=== PATIENT | male | born 1980 | race Caucasian/White ===

== ENCOUNTER → 2016-06-13 | Outpatient (REF) | payer BC | LOC: M LAB REF 20:02 | PROVIDERS: ATTEND Physician Assistant | DX: R35.0 Frequency of micturition (principal) ==

== ENCOUNTER 2016-09-03 12:21 | Inpatient (IN) | payer BC ==
[~2016-09-03] VITALS: Ht 170.2 cm; Wt 134.1 kg
--- NOTE | 2016-09-03 13:24 | REP ---
Clinical: Shortness of breath . Comparison: 05/12/2011 . Technique: PA and lateral. Findings: The mediastinum and cardiac silhouette are normal. The lung garcia are clear and without acute consolidation, effusion, or pneumothorax. The skeletal structures are intact and normal. Impression: 1. No acute cardiopulmonary process. Signed by Israel Sandoval MD 09/03/2016 01:17 P
--- NOTE | 2016-09-03 13:26 | REP ---
Clinical: Altered mental status and headache. Comparison: None . Findings: The ventricles, sulci, and cisterns are normal in position and appearance. Encinas-white differentiation is maintained. No acute intracranial hemorrhage, mass/mass effect, pathology or trauma/injury. No evidence for acute infarction. No extra-axial fluid collection. Calvarium is intact. Paranasal sinuses and mastoid air cells are clear. Impression: Normal noncontrast head CT. No evidence for acute intracranial pathology or trauma/injury. Signed by Israel Sandoval MD 09/03/2016 01:18 P
[2016-09-03 14:13] LABS: BASO % 0.9 % (0.0-1.0); EOS # 0.3 K/mm3 (0.0-0.50); EOS % 7.2 % (0.0-3.0); LARGE UNSTAINED CELL # 0.1 K/mm3 (0.0-0.4); LARGE UNSTAINED CELL % 2.5 % (0.0-4.0); LYMPH % 43.1 % (24.0-44.0); MEAN CORPUSCULAR HEMOGLOBIN 30.5 pg (27.0-33.0); MEAN CORPUSCULAR HGB CONC 35.5 g/dl (32.0-36.5); MONO # 0.3 K/mm3 (0.0-0.8); MONO % 6.7 % (0.0-5.0); NEUTROPHILS # 1.8 K/mm3 (1.8-7.7); NEUTROPHILS % 39.5 % (36.0-66.0); PLATELET COUNT, AUTOMATED 206 k/mm3 (150-450); RED CELL DISTRIBUTION WIDTH 13.4 % (11.5-14.5); WHITE BLOOD COUNT 4.6 K/mm3 (4.0-10.0)
[2016-09-03 14:20] LABS: INR 0.96
[2016-09-03 14:41] LABS: ALKALINE PHOSPHATASE 73 U/L (45-117); ALT/SGPT 77 U/L (12-78); AST/SGOT 66 U/L (15-37); BILIRUBIN,DIRECT 0.1 MG/DL (0.0-0.2); BILIRUBIN,TOTAL 0.5 MG/DL (0.2-1.0); BLOOD UREA NITROGEN 14 MG/DL (7-18); CALCIUM LEVEL 8.5 MG/DL (8.5-10.1); CREATININE FOR GFR 0.97 MG/DL (0.70-1.30); GLUCOSE, FASTING 91 MG/DL (70-105); POTASSIUM SERUM 4.5 MEQ/L (3.5-5.1); SODIUM LEVEL 141 MEQ/L (136-145)
[2016-09-03 14:59] LABS: ALBUMIN 3.7 GM/DL (3.2-5.2); ALBUMIN/GLOBULIN RATIO 1.23 (1.00-1.93); ANION GAP 8 MEQ/L (8-16); CARBON DIOXIDE LEVEL 26 MEQ/L (21-32); CHLORIDE LEVEL 107 MEQ/L (98-107); TOTAL PROTEIN 6.7 GM/DL (6.4-8.2)
[2016-09-03] MEDS ORDERED: NS 1,000 ML IV ONE (15:15)
--- NOTE | 2016-09-03 15:25 | HPEPDOC ---
Medical History and Physical Date of Admission 09/03/16 History and Physical ATTENDING: Dr. Arizmendi PCP: none CC: AMS HPI: 35yoM with a past medical history significant for AMS. Pt states yesterday he felt angry and sad slightly confused, had episode of crying at dinner table but did not know why. states he seemed slightly "dazed" as though he was "looking through" her. This AM he felt "floaty", "dreamy" with slight Rt side head pain and slight blurred vision. No weakness, paresthesia, or SY otherwise. No diplopia, dizziness, vertigo, dysarthria, dysphagia. Denies any recent illness. States ate last night but not much to eat or drink today. Denies unresponsive episodes, episodes of staring, LOC, jerking, tongue biting, incontinence. Denies any fevers, chills, weakness, fatigue, CP, SOB, cough, palpitations, abdominal pain, N/V/D or changes in bowel or bladder habits. The pt states he still feels somewhat dazed but denies head pain or blurred vision currently. Upon presentation to the hospital the patient was found to have AMS, thus the hospitalist team was consulted. 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 ROS: As noted in HPI, otherwise 11pt ROS of systems reviewed and unremarkable. Pt states he is supposed to take ASA but usually takes as sporadically. PE: GEN: 35yoM, appears stated age. Well-nourished, well developed. No acute distress. Alert and oriented x 3. Pleasant, interactive. HEENT: Normocephalic, atraumatic. Pupils are equal, round, and reactive to light. Extraocular movements are intact. No nystagmus appreciated. Sclera are nonicteric. Conjunctiva without injection. Nose midline. Nasal turbinates without bogginess. EACs both patent BL. TMs both visualized and botello with good cone of light, no bulging or erythema. No facial asymmetry. Moist mucous membranes. Dentition fair. Pharynx pink and moist, no cobblestoning. Neck supple , trachea midline. No lymphadenopathy or thyromegaly appreciated. CHEST: Regular rate and rhythm, +S1, +S2 LUNGS: Clear to auscultation bilaterally. No wheezes, rales, or rhonchi. Breathing appears symmetric and easy. Patient is speaking in full sentences. No accessory muscle use. ABD: Round, soft, non-tender, non-distended. +Bowel sounds throughout. No rebound or guarding. No costovertebral angle tenderness. EXT: Pulses 2+ bilaterally dorsalis pedis and radial. No lower extremity edema appreciated. SKIN: [place], dry, warm. Capillary refill <2sec. No rashes. NEURO: Alert and oriented x 3. Cranial nerves III-XII are intact. No focal deficits appreciated. CXR: No acute cardiopulmonary process. CT: Head Normal noncontrast head CT. No evidence for acute intracranial pathology or trauma/injury EKG: SR 74bpm. UC pending UDS pending. A&P: 35yoM with a past medical history significant for AMS. Pt states yesterday he felt angry and sad slightly confused, had episode of crying at dinner table but did not know why. states he seemed slightly confused. This AM he felt "floaty", "dreamy" with slight Rt side head pain and blurred vision. No weakness , paresthesia, SY otherwise. The patient will be admitted to for at least [address] Arizmendi's service. AMS. Neurology consulted, Dr Haney aware and will see pt. MRI/MRA/MRV pending. UC pending, UDS pending. ASA 325mg daily, spoke with Dr Lizarraga. Rhabdomyolysis. Repeat labs in AM. IVF at 100cc/hr. S/P 1 liter bolus in ED. H/O factor V Leiden. ASA 325mg daily. Obesity. BMI 43.9. DVT prophylaxis. The patient is a Full code. Vital Signs Vital Signs Date Time Temp Pulse Resp B/P (MAP) Pulse Ox O2 Delivery O2 Flow Rate FiO2 09/03/16 15:15 131/76 (94) 09/03/16 14:36 72 16 95 09/03/16 12:23 98.1 Room Air Laboratory Data Labs 24H Laboratory Tests 2 09/03/16 14:04: White Blood Count 4.6, Red Blood Count 4.23L, Hemoglobin 12.9L, Hematocrit 36.4L , Mean Corpuscular Volume 86.0, Mean Corpuscular Hemoglobin 30.5, Mean Corpuscular Hemoglobin Concent 35.5, Red Cell Distribution Width 13.4, Platelet Count 206, Neutrophils (%) (Auto) 39.5, Lymphocytes (%) (Auto) 43.1, Monocytes ( %) (Auto) 6.7H, Eosinophils (%) (Auto) 7.2H, Basophils (%) (Auto) 0.9, Neutrophils # (Auto) 1.8, Lymphocytes # (Auto) 2.0, Monocytes # (Auto) 0.3, Eosinophils # (Auto) 0.3, Basophils # (Auto) 0.0, Large Unclassified Cells % 2.5 , Large Unclassified Cells # 0.1, Prothrombin Time 12.9, Prothromb Time International Ratio 0.96, Activated Partial Thromboplast Time 29.5, Anion Gap 8 , Calcium Level 8.5, Aspartate Amino Transf (AST/SGOT) 66H, Alanine Aminotransferase (ALT/SGPT) 77, Alkaline Phosphatase 73, Total Bilirubin 0.5, Direct Bilirubin 0.1, Total Creatine Kinase 1453H, Creatine Kinase MB 6.3H, Creatine Kinase MB Relative Index 0.43, Troponin I < 0.02, Total Protein 6.7, Albumin 3.7, Albumin/Globulin Ratio 1.23, Thyroid Stimulating Hormone (TSH) 2.850 CBC/BMP Laboratory Tests 09/03/16 14:04 Red Blood Count 4.23 L, Mean Corpuscular Volume 86.0, Mean Corpuscular Hemoglobin 30.5, Mean Corpuscular Hemoglobin Concent 35.5, Red Cell Distribution Width 13.4, Neutrophils (%) (Auto) 39.5, Lymphocytes (%) (Auto) 43.1, Monocytes (%) (Auto) 6.7 H, Eosinophils (%) (Auto) 7.2 H, Basophils (%) ( Auto) 0.9, Neutrophils # (Auto) 1.8, Lymphocytes # (Auto) 2.0, Monocytes # (Auto ) 0.3, Eosinophils # (Auto) 0.3, Basophils # (Auto) 0.0 Home Medications No Active Prescriptions or Reported Meds Allergies Coded Allergies: No Known Allergies (Unverified , 09/03/16) GME ATTESTATION My preceptor for this patient encounter was physically present in the building during the encounter and was fully available. As needed, all aspects of the patient interview, examination, medical decision making process, and medical care plan development were reviewed and approved by the preceptor. Preceptor is aware and concurs with the plan as stated in the body of this note and will attest to such by his/her cosignature. ATTENDING NOTE I have both independently examined this patient as well as reviewed the H&P. I have discussed in detail with Huma the findings and plan of treatment as documented in Chantal note. I will continue to follow the patient and offer further guidance to the patients care as necessary during this hospital stay. Huma Ghotra MD September 03, 2016 15:25 BLAKE WALLACE MD September 04, 2016 11:34
[2016-09-03 15:53] LABS: METHADONE URINE NEGATIVE (NEGATIVE)
[2016-09-03] MEDS ORDERED: ACETAMINOPHEN TAB 650MG DOSE (2X325MG) PO PRN (16:00)
--- NOTE | 2016-09-03 17:08 | REP ---
MRA BRAIN WITHOUT CONTRAST: HISTORY: Aneurysm. 3D [id number] MR angiography was performed at the level of the [place] of [place]. The examination is limited secondary to motion. There is no definite aneurysm or arteriovenous malformation. There are no atherosclerotic lesions. Major intracranial vessels are patent. The left vertebral artery is dominant. IMPRESSION:Limited examination demonstrating no definite aneurysm or arteriovenous malformation. Signed by Van Grossman MD 09/04/2016 08:54 A
--- NOTE | 2016-09-03 17:10 | REP ---
MR BRAIN WITHOUT CONTRAST: HISTORY: Headache. COMPARISON: CT 09/03/2016. There are no areas of abnormal signal intensity in the brain. There is no intraparenchymal hemorrhage, infarct, mass or midline shift. The sella turcica is partially empty. The ventricular system is normal in appearance. A ken cisterna magna is present. There is no extracerebral collection. Mucosal thickening is present in the right frontal sinus. IMPRESSION: There is no intracranial lesion. Signed by Van Grossman MD 09/04/2016 08:54 A
--- NOTE | 2016-09-03 18:10 | REPUSA ---
MR Venogram of the brain Clinical history: Cavernous venous thrombosis. Technique: [id number] MRA images of the brain were obtained before and after administration of in travenous gadolinium contrast. 3-D MIP images were also obtained. Findings: The venous structures extending including the sagittal and transverse sinuses, to the level of the jugular veins, demonstrate normal caliber and contour. There is no evidence of stenosis or t hrombosis. Impression: Unremarkable MRV examination of the brain.
[2016-09-03 18:15] VITALS: BP 133/82
[2016-09-03] MEDS: ASPIRIN 325 MG TAB PO SCH (18:41)
[2016-09-03] MEDS: NS 1,000 ML IV SCH (18:41)
[2016-09-03 20:03] VITALS: BP 127/86
[2016-09-03] MEDS: HEPARIN SOD (PORCINE) 5000 UNITS/ML VIAL SC SCH (20:03)
[2016-09-04] VITALS (7 sets, daily range): BP systolic 125–144; BP diastolic 80–107
[2016-09-04] MEDS: NS 1,000 ML IV SCH ×3 (04:28→21:46)
[2016-09-04 05:29] LABS: MEAN CORPUSCULAR HEMOGLOBIN 30.3 pg (27.0-33.0); MEAN CORPUSCULAR HGB CONC 35.1 g/dl (32.0-36.5); MEAN CORPUSCULAR VOLUME 86.5 fl (80.0-96.0); RED CELL DISTRIBUTION WIDTH 13.4 % (11.5-14.5); WHITE BLOOD COUNT 4.5 K/mm3 (4.0-10.0)
[2016-09-04 05:46] LABS: ALBUMIN 3.4 GM/DL (3.2-5.2); ALKALINE PHOSPHATASE 68 U/L (45-117); ALT/SGPT 70 U/L (12-78); ANION GAP 6 MEQ/L (8-16); AST/SGOT 53 U/L (15-37); BILIRUBIN,TOTAL 0.5 MG/DL (0.2-1.0); BLOOD UREA NITROGEN 13 MG/DL (7-18); CALCIUM LEVEL 8.2 MG/DL (8.5-10.1); CARBON DIOXIDE LEVEL 27 MEQ/L (21-32); CHLORIDE LEVEL 108 MEQ/L (98-107); CREATININE FOR GFR 1.01 MG/DL (0.70-1.30); GLOMERULAR FILTRATION RATE > 60.0 (>60); GLUCOSE, FASTING 101 MG/DL (70-105); POTASSIUM SERUM 4.4 MEQ/L (3.5-5.1); SODIUM LEVEL 141 MEQ/L (136-145); TOTAL PROTEIN 6.5 GM/DL (6.4-8.2)
[2016-09-04] MEDS: HEPARIN SOD (PORCINE) 5000 UNITS/ML VIAL SC SCH ×2 (08:01→21:46)
[2016-09-04] MEDS: ASPIRIN 325 MG TAB PO SCH (08:01)
--- NOTE | 2016-09-04 13:07 | IPNPDOC ---
Text Note Date of Service The patient was seen on 09/04/16. NOTE Subjective: Patient is a 35 year old male with a PMHx of Factor V Leiden mutation who presented to the ER with AMS. He noted that he felt "foggy." Patient was admitted to telemetry for possible TIA. Patient was seen and examined at the bedside. Currently he is feeling better, but still notes that he has some "fogginess" that has not completely resolved. Objective: Vitals (See below) General: Lying in bed, no acute distress, comfortable, AAOx3 HEENT: NC, AT CVS: RRR, +S1S2 Lungs: Fair air entry b/l, -w/r/r Abdomen: Soft, ND, NT, +BSx4 Extremities: +PPx4, - Edema, - Calf tenderness Assessment and plan: 1. AMS / "Fogginess" - possibly 2/2 substance abuse 2/2 marijuana, less likely 2 /2 TIA - Presented with difficulty with thoughts and light headedness - No focal deficits were noted on physical exam - UDS positive for marijuana - CT Head / MRV / MRI / MRA head - all have been negative for any acute pathology - c/w neurological checks - Neurology has been consulted - appreciate their input - c/w ASA 325 2. Rhabdomyolysis - elevated CKMB, trending down - c/w IV fluid hydration with NS 3. Factor V Leiden mutation - c/w ASA 325 4. Obesity 5. DVT prophylaxis - c/w Heparin SQ VS,Fishbone, I+O VS, Fishbone, I+O Laboratory Tests 09/03/16 14:04 Red Blood Count 4.23 L, Mean Corpuscular Volume 86.0, Mean Corpuscular Hemoglobin 30.5, Mean Corpuscular Hemoglobin Concent 35.5, Red Cell Distribution Width 13.4, Neutrophils (%) (Auto) 39.5, Lymphocytes (%) (Auto) 43.1, Monocytes (%) (Auto) 6.7 H, Eosinophils (%) (Auto) 7.2 H, Basophils (%) ( Auto) 0.9, Neutrophils # (Auto) 1.8, Lymphocytes # (Auto) 2.0, Monocytes # (Auto ) 0.3, Eosinophils # (Auto) 0.3, Basophils # (Auto) 0.0 09/04/16 05:01 Red Blood Count 3.94 L, Mean Corpuscular Volume 86.5, Mean Corpuscular Hemoglobin 30.3, Mean Corpuscular Hemoglobin Concent 35.1, Red Cell Distribution Width 13.4, Calcium Level 8.2 L, Aspartate Amino Transf (AST/SGOT) 53 H, Alanine Aminotransferase (ALT/SGPT) 70, Total Creatine Kinase 1000 H, Alkaline Phosphatase 68, Total Bilirubin 0.5, Total Protein 6.5, Albumin 3.4 Vital Signs Date Time Temp Pulse Resp B/P (MAP) Pulse Ox O2 Delivery O2 Flow Rate FiO2 09/04/16 07:30 97.7 84 22 144/96 (112) 97 Room Air I&O- Last 24 Hours up to 6 AM 09/04/16 06:00 Intake Total 2385 ml Output Total 1275 ml Balance 1110 ml FRANKO SARABIA MD September 04, 2016 13:07
--- NOTE | 2016-09-04 14:21 | ECGEPIP ---
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
[2016-09-05] VITALS: BP 141/90
[2016-09-05 04:00] VITALS: BP 148/71
[2016-09-05 06:12] LABS: MEAN CORPUSCULAR HEMOGLOBIN 30.7 pg (27.0-33.0); MEAN CORPUSCULAR HGB CONC 35.9 g/dl (32.0-36.5); MEAN CORPUSCULAR VOLUME 85.5 fl (80.0-96.0); RED CELL DISTRIBUTION WIDTH 13.6 % (11.5-14.5); WHITE BLOOD COUNT 4.3 K/mm3 (4.0-10.0)
[2016-09-05 06:33] LABS: ALBUMIN 3.3 GM/DL (3.2-5.2); ALBUMIN/GLOBULIN RATIO 1.06 (1.00-1.93); ALKALINE PHOSPHATASE 69 U/L (45-117); ALT/SGPT 73 U/L (12-78); ANION GAP 6 MEQ/L (8-16); AST/SGOT 44 U/L (15-37); BILIRUBIN,TOTAL 0.4 MG/DL (0.2-1.0); BLOOD UREA NITROGEN 14 MG/DL (7-18); CALCIUM LEVEL 8.2 MG/DL (8.5-10.1); CARBON DIOXIDE LEVEL 26 MEQ/L (21-32); CHLORIDE LEVEL 111 MEQ/L (98-107); CREATININE FOR GFR 0.94 MG/DL (0.70-1.30); GLOMERULAR FILTRATION RATE > 60.0 (>60); GLUCOSE, FASTING 97 MG/DL (70-105); POTASSIUM SERUM 4.4 MEQ/L (3.5-5.1); SODIUM LEVEL 143 MEQ/L (136-145); TOTAL PROTEIN 6.4 GM/DL (6.4-8.2)
[2016-09-05] MEDS ORDERED: ASPI325T PO (07:25)
[2016-09-05 08:06] VITALS: BP 139/93
[2016-09-05] MEDS: ASPIRIN 325 MG TAB PO SCH (09:45)
--- NOTE | 2016-09-05 11:54 | CR ---
DATE OF CONSULTATION: 09/05/2016 REASON FOR CONSULTATION: Altered mental status. HISTORY OF PRESENT ILLNESS: Los Carrera is a 35-year-old male with past medical history significant for factor V Leiden mutation, presenting with a sense of having altered mental status with feeling angry, sad, and confused, episodes of crying at the dinner table and not knowing why. The patient also had a feeling that he was floating and dreaming. The patient has been smoking marijuana every single evening recently to help him sleep. The patient does not take aspirin regularly and states he was last evaluated by a poll watcher at the age of 15. He recounts that the poll watcher told him to take the aspirin only whenever he feels like taking it, which is unlikely. I have requested the patient continue with aspirin 81 mg every single day until he is evaluated by poll watcher, which our hospital will be able to refer him to upon discharge. The patient states that at the present time his altered mental status feelings have completely resolved. He was incidentally documented to have rhabdomyolysis with a creatine phosphokinase (CPK) level in the low thousands. He was maintained on aspirin 325 mg during the hospitalization. MRI/MRA angiogram of the head and neck did not reveal any significant stenosis or stroke or aneurysm. The patient denies history of tobacco use. He does use alcohol a few days a week. He denies any weakness of the arms or legs or change in vision, speech, or swallowing. PAST MEDICAL HISTORY: Factor V Leiden mutation. PAST SURGICAL HISTORY: None. SOCIAL HISTORY: The patient lives with his and one child. He denies use of any tobacco and uses marijuana every single night. He consumes one to two alcoholic beverages per week. FAMILY HISTORY: Mother with factor V Leiden mutation. REVIEW OF SYSTEMS: A 14-point review of systems obtained and is negative except as per history of present illness (HPI). PHYSICAL EXAMINATION: Blood pressure is 144/96, pulse rate 84, respiratory rate is 22, temperature is 97.7 degrees Fahrenheit, oxygenation 97% on room air. The patient is awake, alert, oriented to person, place, and time. Speech, language, comprehension, repetition are intact. Pupils are 3 mm, round, reactive to light. Extraocular movements are intact in all directions. Sensation in V1, V2, V3 is intact to light touch. No facial asymmetry on activation. Palate elevates symmetrically. Tongue is midline. No weakness of sternocleidomastoids bilaterally. Motor examination: No pronator drift. Strength is 5/5, including bilateral deltoids, biceps, triceps, iliopsoas, quadriceps, anterior tibialis. Deep tendon reflexes are 2's throughout. Romberg testing is negative. Sensory is intact to light touch in all four extremities. Coordination: Normal evvbao-gb-[id number] without any signs of ataxia or dysmetria. ASSESSMENT: 1. Episode of altered mental status in the setting of rhabdomyolysis and marijuana use. 2. Factor V Leiden mutation PLAN: 1. Recommend the patient be discharged on 81 mg aspirin every single day. 2. Recommend the patient be referred to a poll watcher for further evaluation and management of his factor IV Leiden mutation. 3. The patient advised to stop using marijuana and to re-establish care with a primary care provider to manage his insomnia. 4. Continue management of rhabdomyolysis as per primary team.
--- NOTE | 2016-09-05 18:50 | DSES ---
DATE OF ADMISSION: 09/03/2016 DATE OF DISCHARGE: 09/05/2016 ATTENDING PHYSICIAN: Dr. Renetta Arizmendi PRIMARY CARE PHYSICIAN: Will be established with family medicine. REFERRING PHYSICIAN: None. CONSULTATIONS: None. CONSULTING PHYSICIAN: None. CONDITION ON DISCHARGE: Stable. FINAL DIAGNOSES: 1. Rhabdomyolysis. 2. Altered mental status possible secondary to substance abuse. PROCEDURES: None. HISTORY OF PRESENT ILLNESS: Patient is a 35-year-old male with a past medical history of Factor V Leiden mutation who presented to the emergency room with altered mental status. He noted that he felt foggy. Patient was admitted for telemetry for possible transient ischemic attack (TIA). HOSPITAL COURSE: 1. Altered mental status/fogginess possibly secondary to substance abuse/secondary to marijuana. Less likely secondary to TIA. Presented with difficulty with thoughts and lightheadedness. No focal deficits were noted on physical exam. Urine toxicology screen was positive for marijuana. CT head MRV/MRI/MRA head all have been negative for any acute pathology. Continue with neurological checks. Neurology has been consulted. We appreciate their input. Continue with aspirin 325. 2. Rhabdomyolysis. Elevated CK-MB has been trending down. He has been put on intravenous (IV) fluid hydration. 3. Factor V Leiden mutation. Continue with aspirin 325. 4. Obesity. 5. Deep venous prophylaxis. (DVT) prophylaxis. Continue with heparin. DISCHARGE MEDICATIONS: The patient was discharged home with the following medication list: - aspirin 325 mg DISCHARGE INSTRUCTIONS: Patient is advised to followup with his primary care provider who we will help establish. He has been given a referral to hematology/oncology. Patient was advised to confirm the schedule appointment. He has been advised to remain compliant with treatment plan, medications and return to the emergency room if he experience any problems. TIME SPENT ON DISCHARGE: 35 minutes.
== END 2016-09-05 09:58 | disposition home or self-care (01) | DRG 812 ==
LOC: M ED 13:29 → M ED INP 15:48 → M PCU 18:00
PROVIDERS: ADMIT Hospitalist; ATTEND Internal Medicine
DX: T40.7X1A Poisoning by cannabis (derivatives), accidental (unintentional), initial encounter (principal); D68.51 Activated protein C resistance; M62.82 Rhabdomyolysis; Z68.41 Body mass index [BMI] 40.0-44.9, adult; R41.82 Altered mental status, unspecified; F12.10 Cannabis abuse, uncomplicated; E66.9 Obesity, unspecified; Z82.49 Family history of ischemic heart disease and other diseases of the circulatory system; Z83.2 Family history of diseases of the blood and blood-forming organs and certain disorders involving the immune mechanism; Z79.82 Long term (current) use of aspirin

== ENCOUNTER → 2016-09-19 | Outpatient (REF) | payer BC ==
[~2016-09-19] MED LIST: ASPI325T PO
[2016-09-21 00:06] LABS: Lyme Disease IgG/IgM Antibodie <0.91 ISR (0.00-0.90); Lyme Disease IgM Ab Quantitati <0.80 index (0.00-0.79)
== END ==
LOC: M SFHCADAM 10:42
PROVIDERS: ATTEND Family Medicine
DX: R40.4 Transient alteration of awareness (principal)

== ENCOUNTER → 2016-09-27 | Outpatient (REF) | payer BC | LOC: M LAB REF 12:46 | PROVIDERS: ATTEND Internal Medicine Medical Oncology | DX: D68.51 Activated protein C resistance (principal) ==

== ENCOUNTER → 2016-09-27 | Outpatient (REF) | payer BC | LOC: M SFHCADAM 12:59 | PROVIDERS: ATTEND Family Medicine | DX: G93.40 Encephalopathy, unspecified (principal); E72.20 Disorder of urea cycle metabolism, unspecified ==

== ENCOUNTER → 2016-09-27 | Outpatient (CLI) | payer BC ==
[2016-09-27 15:55] LABS: INR 0.89
[2016-09-27 16:07] LABS: ALKALINE PHOSPHATASE 77 U/L (45-117); AST/SGOT 47 U/L (15-37); BILIRUBIN,TOTAL 0.5 MG/DL (0.2-1.0); BLOOD UREA NITROGEN 17 MG/DL (7-18); CALCIUM LEVEL 8.6 MG/DL (8.5-10.1); CHLORIDE LEVEL 104 MEQ/L (98-107); CREATININE FOR GFR 1.04 MG/DL (0.70-1.30); GLUCOSE, FASTING 127 MG/DL (70-105); SODIUM LEVEL 137 MEQ/L (136-145); TOTAL PROTEIN 6.9 GM/DL (6.4-8.2)
[2016-09-27 16:25] LABS: ALT/SGPT 63 U/L (12-78)
[2016-09-27 20:31] LABS: ANION GAP 7 MEQ/L (8-16); CARBON DIOXIDE LEVEL 26 MEQ/L (21-32)
[2016-09-27 20:32] LABS: ALBUMIN 4.2 GM/DL (3.2-5.2); ALBUMIN/GLOBULIN RATIO 1.56 (1.00-1.93)
== END ==
LOC: M LAB 14:55
PROVIDERS: ATTEND Family Medicine
DX: E72.20 Disorder of urea cycle metabolism, unspecified (principal); G93.40 Encephalopathy, unspecified

== ENCOUNTER → 2016-09-29 | Outpatient (REF) | payer BC | LOC: M SFHCADAM 09:06 | PROVIDERS: ATTEND Family Medicine | DX: E72.20 Disorder of urea cycle metabolism, unspecified (principal); G93.40 Encephalopathy, unspecified ==

== ENCOUNTER → 2016-10-01 | Outpatient (CLI) | payer BC ==
--- NOTE | 2016-10-02 03:48 | REP ---
Clinical: Elevated ammonia levels. Technique: Real time botello scale ultrasound examination using curved array transducer. Findings: The liver is increased in echogenicity with poor through transmission suggesting fatty infiltration without focal hepatic lesion identified. The pancreas is incompletely evaluated due to interposed bowel gas. The gallbladder demonstrates a gallstone without wall thickening, pericholecystic fluid, or biliary ductal dilatation. No sonographic Lepe's sign was elicited. Common bile duct measures 4.3 mm diameter. Right kidney appears malrotated, but without hydronephrosis and measures 10.1 x 4.7 x 5.2 cm. No ascites in the visualized right upper quadrant. Impression: 1. Fatty infiltration to the liver without focal hepatic lesion identified. 2. Cholelithiasis. Signed by Israel Sandoval MD 10/02/2016 03:41 A
== END ==
LOC: M RAD 08:13
PROVIDERS: ATTEND Family Medicine
DX: E72.20 Disorder of urea cycle metabolism, unspecified (principal); K76.0 Fatty (change of) liver, not elsewhere classified; K80.20 Calculus of gallbladder without cholecystitis without obstruction

== ENCOUNTER → 2016-10-04 | Outpatient (REF) | payer BC | LOC: M SFHCADAM 15:39 | PROVIDERS: ATTEND Family Medicine | DX: E72.20 Disorder of urea cycle metabolism, unspecified (principal) ==

== ENCOUNTER → 2016-10-08 | Outpatient (REF) | payer BC | LOC: M SFHCADAM 09:27 | PROVIDERS: ATTEND Family Medicine | DX: E72.20 Disorder of urea cycle metabolism, unspecified (principal); G93.40 Encephalopathy, unspecified ==

== ENCOUNTER → 2016-10-09 | Outpatient (REF) | payer BC | LOC: M SFHCADAM 18:55 | PROVIDERS: ATTEND Family Medicine | DX: Z87.39 Personal history of other diseases of the musculoskeletal system and connective tissue (principal) ==

== ENCOUNTER → 2016-10-15 | Outpatient (REF) | payer BC | LOC: M SFHCADAM 10:28 | PROVIDERS: ATTEND Family Medicine | DX: E72.20 Disorder of urea cycle metabolism, unspecified (principal); Z87.39 Personal history of other diseases of the musculoskeletal system and connective tissue ==

== ENCOUNTER → 2016-10-17 | Outpatient (REF) | payer BC | LOC: M SFHCADAM 13:54 | PROVIDERS: ATTEND Family Medicine | DX: E72.20 Disorder of urea cycle metabolism, unspecified (principal); Z87.39 Personal history of other diseases of the musculoskeletal system and connective tissue ==

== ENCOUNTER → 2016-10-18 | Outpatient (REF) | payer BC ==
[2016-10-20 00:15] LABS: SJOGREN'S ANTI SS-A <0.2 AI (0.0-0.9); SJOGREN'S ANTI SS-B <0.2 AI (0.0-0.9)
[2016-10-24 08:07] LABS: ANTI SCLERODERMA ANTIBODIES <0.2 AI (0.0-0.9); Mi-2 ANTIBODIES Negative (.); POLYMYOSITIS AB 9.2 EU/mL (.)
== END ==
LOC: M SFHCADAM 11:45
PROVIDERS: ATTEND Family Medicine
DX: R74.8 Abnormal levels of other serum enzymes (principal)

== ENCOUNTER → 2016-11-01 | Outpatient (CLI) | payer BC ==
[2016-11-01 18:27] LABS: FERRITIN 223 NG/ML (26-388); PERCENT SATURATION 24.2 % (19.7-37.4); TOTAL IRON BINDING CAPACITY 289 UG/DL (250-450)
[2016-11-04 10:45] LABS: HEPATITIS B SURFACE ANTIBODY NEGATIVE (POSITIVE)
== END ==
LOC: M LAB 15:09
PROVIDERS: ATTEND Internal Medicine Gastroenterology
DX: E72.20 Disorder of urea cycle metabolism, unspecified (principal); R94.5 Abnormal results of liver function studies
CPT/HCPCS: 36415; 82728; 83550; 86038; 86255; 86256; 86376; 86706; 86708; 87340; G0472

== ENCOUNTER → 2016-11-01 | Outpatient (CLI) | payer BC ==
[2016-11-01 18:33] LABS: ALBUMIN 3.9 GM/DL (3.2-5.2); ALBUMIN/GLOBULIN RATIO 1.34 (1.00-1.93); ALKALINE PHOSPHATASE 76 U/L (45-117); ANION GAP 6 MEQ/L (8-16); AST/SGOT 48 U/L (15-37); BILIRUBIN,TOTAL 0.5 MG/DL (0.2-1.0); BLOOD UREA NITROGEN 13 MG/DL (7-18); CALCIUM LEVEL 8.2 MG/DL (8.5-10.1); CARBON DIOXIDE LEVEL 25 MEQ/L (21-32); CHLORIDE LEVEL 105 MEQ/L (98-107); CREATININE FOR GFR 1.07 MG/DL (0.70-1.30); FREE T4 0.38 NG/DL (0.76-1.46); GLOMERULAR FILTRATION RATE > 60.0 (>60); PERCENT SATURATION 24.5 % (19.7-37.4); POTASSIUM SERUM 4.4 MEQ/L (3.5-5.1); SODIUM LEVEL 136 MEQ/L (136-145); TOTAL IRON BINDING CAPACITY 286 UG/DL (250-450); TOTAL PROTEIN 6.8 GM/DL (6.4-8.2)
[2016-11-01 19:32] LABS: ALT/SGPT 70 U/L (12-78); GLUCOSE, FASTING 106 MG/DL (70-105)
== END ==
LOC: M LAB 15:16
PROVIDERS: ATTEND Family Medicine
DX: E72.20 Disorder of urea cycle metabolism, unspecified (principal); R41.0 Disorientation, unspecified; N53.8 Other male sexual dysfunction

== ENCOUNTER → 2016-11-20 | Outpatient (REF) | payer BC ==
[2016-11-20 16:42] LABS: ALBUMIN 3.6 GM/DL (3.2-5.2); ALBUMIN/GLOBULIN RATIO 1.09 (1.00-1.93); ALKALINE PHOSPHATASE 75 U/L (45-117); ALT/SGPT 60 U/L (12-78); ANION GAP 7 MEQ/L (8-16); AST/SGOT 29 U/L (15-37); BILIRUBIN,TOTAL 0.3 MG/DL (0.2-1.0); BLOOD UREA NITROGEN 22 MG/DL (7-18); CALCIUM LEVEL 8.6 MG/DL (8.5-10.1); CARBON DIOXIDE LEVEL 25 MEQ/L (21-32); CHLORIDE LEVEL 109 MEQ/L (98-107); CREATININE FOR GFR 1.22 MG/DL (0.70-1.30); GLOMERULAR FILTRATION RATE > 60.0 (>60); GLUCOSE, FASTING 83 MG/DL (70-105); POTASSIUM SERUM 4.4 MEQ/L (3.5-5.1); SODIUM LEVEL 141 MEQ/L (136-145); TOTAL PROTEIN 6.9 GM/DL (6.4-8.2)
== END ==
LOC: M SFHCPLAZ 11:37
PROVIDERS: ATTEND Nurse Practitioner Family
DX: G93.40 Encephalopathy, unspecified (principal)

== ENCOUNTER → 2016-11-26 | Outpatient (CLI) | payer BC | LOC: M LAB 16:53 | PROVIDERS: ATTEND Family Medicine | DX: E72.20 Disorder of urea cycle metabolism, unspecified (principal) ==

== ENCOUNTER → 2016-12-05 | Outpatient (CLI) | payer BC | LOC: M LAB 16:51 | PROVIDERS: ATTEND Family Medicine | DX: E72.20 Disorder of urea cycle metabolism, unspecified (principal) ==

== ENCOUNTER → 2016-12-12 | Outpatient (REF) | payer BC | LOC: M SFHCADAM 08:20 | PROVIDERS: ATTEND Family Medicine | DX: Z53.8 Procedure and treatment not carried out for other reasons (principal) ==

== ENCOUNTER → 2016-12-22 | Outpatient (CLI) | payer BC ==
[2016-12-23 09:53] LABS: CORTISOL AM 1.6 UG/DL (4.3-22.4)
[2016-12-23 10:18] LABS: FOLLICLE STIMULATING HORMONE 0.5 mIU/mL (1.4-18.1); LUTEINIZING HORMONE 0.3 mIU/mL (1.5-9.3)
== END ==
LOC: M LAB 08:59
PROVIDERS: ATTEND Family Medicine
DX: E23.6 Other disorders of pituitary gland (principal)

== ENCOUNTER → 2016-12-23 | Outpatient (REF) | payer BC ==
[2016-12-23 20:07] LABS: CORTISOL AM 0.9 UG/DL (4.3-22.4); LUTEINIZING HORMONE 0.4 mIU/mL (1.5-9.3)
[2016-12-23 20:08] LABS: FOLLICLE STIMULATING HORMONE 1.5 mIU/mL (1.4-18.1)
[2016-12-27 00:06] LABS: ALPHA-AMINOADIPATE 42.5 umol/g Cr (0.0-146.7); ALPHA-AMINOBUTYRATE 9.8 umol/g Cr (0.0-34.6); BETA-AMINOISOBUTYRATE 24.6 umol/g Cr (0.0-807.9); Creatinine(Crt),U 1.33 g/L (.); GAMMA-AMINOBUTYRATE 0.7 umol/g Cr (0.0-13.1); Orotic/Crt Ratio 0.25 mmol/mol (0.11-1.07)
[2016-12-28 00:07] LABS: ALPHA-AMINOADIPATE 2.3 umol/L (0.0-2.2); BETA-AMINOISOBUTYRATE 1.3 umol/L (0.3-4.3); GAMMA-AMINOBUTYRATE <0.4 umol/L (0.0-0.3)
== END ==
LOC: M SFHCADAM 18:54
PROVIDERS: ATTEND Family Medicine
DX: E23.6 Other disorders of pituitary gland (principal); E72.20 Disorder of urea cycle metabolism, unspecified

== ENCOUNTER → 2017-01-04 | Outpatient (REF) | payer BC | LOC: M SFHCADAM 08:26 | PROVIDERS: ATTEND Family Medicine | DX: E23.0 Hypopituitarism (principal) ==

== ENCOUNTER → 2017-01-28 | Outpatient (CLI) | payer BC ==
[~2017-01-28] MED LIST changes: +PROHANCE 279.3MG/ML 15ML VIAL (A9576) As Ordered ONE
[2017-01-28 18:49] LABS: ALBUMIN 3.6 GM/DL (3.2-5.2); ALKALINE PHOSPHATASE 65 U/L (45-117); ALT/SGPT 74 U/L (12-78); ANION GAP 9 MEQ/L (8-16); AST/SGOT 41 U/L (15-37); BILIRUBIN,TOTAL 0.4 MG/DL (0.2-1.0); BLOOD UREA NITROGEN 10 MG/DL (7-18); CALCIUM LEVEL 8.4 MG/DL (8.5-10.1); CARBON DIOXIDE LEVEL 25 MEQ/L (21-32); CHLORIDE LEVEL 107 MEQ/L (98-107); CREATININE FOR GFR 0.92 MG/DL (0.70-1.30); FREE T4 0.61 NG/DL (0.76-1.46); GLOMERULAR FILTRATION RATE > 60.0 (>60); GLUCOSE, FASTING 125 MG/DL (70-105); POTASSIUM SERUM 4.3 MEQ/L (3.5-5.1); SODIUM LEVEL 141 MEQ/L (136-145); TOTAL PROTEIN 6.6 GM/DL (6.4-8.2)
--- NOTE | 2017-01-29 08:32 | REP ---
MRI BRAIN WITHOUT AND WITH CONTRAST: HISTORY: Hypopituitarism. CONTRAST: ProHance 13 mL. COMPARISON: 09/03/2016. There are no areas of abnormal signal intensity in the brain. There is no intraparenchymal hemorrhage, infarct, mass or midline shift. There is no abnormal enhancement. The ventricular system is normal in appearance. There is no extracerebral collection. A ken cisterna magna is present. The sella turcica is partially empty. The pituitary gland is small in size measuring 3.8 mm in height. There is homogeneous enhancement with contrast. The infundibulum is midline. The cavernous sinuses, optic chiasm and hypothalamus are normal in appearance. The sinuses are clear. IMPRESSION: There is no intracranial lesion. Signed by Van Grossman MD 01/29/2017 08:42 A
== END ==
LOC: M LAB 15:49
PROVIDERS: ATTEND Family Medicine
DX: E23.0 Hypopituitarism (principal); M79.1 Myalgia
CPT/HCPCS: 36415; 70553; 80053; 82550; 84439; 84443; A9576

== ENCOUNTER → 2017-05-09 | Outpatient (REF) | payer BC ==
[2017-05-09 13:39] LABS: BASO % 0.5 % (0.0-1.0); EOS # 0.3 10^3/uL (0.0-0.50); EOS % 4.8 % (0.0-3.0); HEMATOCRIT 40.4 % (42.0-52.0); HEMOGLOBIN 13.8 g/dl (14.0-18.0); IMMATURE GRANULOCYTE % 0.4 % (0-0); LYMPH # 2.7 10^3/uL (1.5-4.5); LYMPH % 48.2 % (24.0-44.0); MEAN CORPUSCULAR HEMOGLOBIN 28.4 pg (27.0-33.0); MEAN CORPUSCULAR HGB CONC 34.2 g/dl (32.0-36.5); MEAN CORPUSCULAR VOLUME 83.1 fl (80.0-96.0); MONO # 0.4 10^3/uL (0.0-0.8); MONO % 6.8 % (0.0-5.0); NEUTROPHILS # 2.2 10^3/uL (1.8-7.7); NEUTROPHILS % 39.3 % (36.0-66.0); PLATELET COUNT, AUTOMATED 227 10^3/uL (150-450); RED BLOOD COUNT 4.86 10^6/uL (4.30-6.10); RED CELL DISTRIBUTION WIDTH 12.8 % (11.5-14.5); WHITE BLOOD COUNT 5.6 10^3/uL (4.0-10.0)
[2017-05-09 13:42] LABS: APPEARANCE, URINE CLEAR (CLEAR); BACTERIA, URINE AUTO NEGATIVE (NEGATIVE); BILIRUBIN, URINE AUTO NEGATIVE (NEGATIVE); BLOOD, URINE BLOOD 1+ (NEGATIVE); COLOR, URINE YELLOW (YELLOW); GLUCOSE, URINE (UA) AUTO NEGATIVE (NEGATIVE); KETONE, URINE AUTO NEGATIVE (NEGATIVE); LEUKOCYTE ESTERASE, URINE AUTO NEGATIVE (NEGATIVE); MUCUS, URINE SMALL (NEGATIVE); NITRITE, URINE AUTO NEGATIVE (NEGATIVE); PROTEIN, URINE AUTO 1+ mg/dL (NEGATIVE); RBC, URINE AUTO 0 /HPF (0-3); SPECIFIC GRAVITY URINE AUTO 1.021 (1.002-1.035); SQUAMOUS EPITHELIAL CELL UR AU 0 /HPF (0-6); UROBILINOGEN, URINE AUTO 0.2 mg/dL (0.0-2.0); WBC, URINE AUTO 0 /HPF (0-3)
[2017-05-09 13:56] LABS: ALBUMIN/GLOBULIN RATIO 1.29 (1.00-1.93); ALKALINE PHOSPHATASE 78 U/L (45-117); ALT/SGPT 48 U/L (12-78); ANION GAP 7 MEQ/L (8-16); AST/SGOT 25 U/L (7-37); BILIRUBIN,TOTAL 0.5 MG/DL (0.2-1.0); BLOOD UREA NITROGEN 14 MG/DL (7-18); CALCIUM LEVEL 8.7 MG/DL (8.5-10.1); CARBON DIOXIDE LEVEL 26 MEQ/L (21-32); CHLORIDE LEVEL 108 MEQ/L (98-107); CHOLESTEROL LEVEL 221 MG/DL (<200); CHOLESTEROL RISK RATIO 8.185 (<5); CREATININE FOR GFR 1.02 MG/DL (0.70-1.30); FREE T4 0.96 NG/DL (0.76-1.46); GLOMERULAR FILTRATION RATE > 60.0 (>60); GLUCOSE, FASTING 85 MG/DL (70-100); HDL CHOLESTEROL 27 MG/DL (>40); LDL CHOLESTEROL 142.8 MG/DL (<100); NON-HDL-C 194 MG/DL; POTASSIUM SERUM 4.6 MEQ/L (3.5-5.1); SODIUM LEVEL 141 MEQ/L (136-145); TOTAL PROTEIN 7.1 GM/DL (6.4-8.2); TRIGLYCERIDES LEVEL 256 MG/DL (<150)
[2017-05-09 13:59] LABS: ESTIMATED AVERAGE GLUCOSE 108 MG/DL (60-110); HEMOGLOBIN A1c 5.4 %
== END ==
LOC: M SFHCADAM 10:07
DX: R63.5 Abnormal weight gain (principal); Z68.42 Body mass index [BMI] 45.0-49.9, adult; R41.840 Attention and concentration deficit; E23.0 Hypopituitarism; E72.20 Disorder of urea cycle metabolism, unspecified; R60.9 Edema, unspecified
CPT/HCPCS: 80053

== ENCOUNTER → 2017-06-05 | Outpatient (CLI) | payer BC ==
[2017-06-05 15:25] LABS: AMMONIA 32 uMOL/L (<32)
== END ==
LOC: M LAB 14:29
DX: R63.5 Abnormal weight gain (principal); Z68.42 Body mass index [BMI] 45.0-49.9, adult; E23.0 Hypopituitarism; E72.20 Disorder of urea cycle metabolism, unspecified; R60.9 Edema, unspecified; R41.840 Attention and concentration deficit
CPT/HCPCS: 82140

== ENCOUNTER → 2017-08-11 | Outpatient (REF) | payer BC ==
[2017-08-11 14:04] LABS: FOLLICLE STIMULATING HORMONE 0.8 mIU/mL (1.4-18.1); LUTEINIZING HORMONE 0.4 mIU/mL (1.5-9.3); PROLACTIN 14.4 NG/ML (2.1-17.7)
[2017-08-11 14:13] LABS: ANION GAP 8 MEQ/L (8-16); BLOOD UREA NITROGEN 16 MG/DL (7-18); CALCIUM LEVEL 8.3 MG/DL (8.5-10.1); CARBON DIOXIDE LEVEL 24 MEQ/L (21-32); CHLORIDE LEVEL 109 MEQ/L (98-107); CREATININE FOR GFR 0.88 MG/DL (0.70-1.30); FREE T4 0.67 NG/DL (0.76-1.46); GLOMERULAR FILTRATION RATE > 60.0 (>60); GLUCOSE, FASTING 86 MG/DL (70-100); POTASSIUM SERUM 4.6 MEQ/L (3.5-5.1); SODIUM LEVEL 141 MEQ/L (136-145)
[2017-08-14 00:07] LABS: ADRENOCORTICOTROPHIC HORMONE 32.1 pg/mL (7.2-63.3)
[2017-08-14 08:11] LABS: HUMAN GROWTH HORMONE < 0.1 ng/mL (0.0-10.0); SEX HORMONE BINDING GLOBULIN 38.6 nmol/L (16.5-55.9); SOMATOMEDIN-C INSULIN GROWTH 56 ng/mL (88-246)
== END ==
LOC: M LABDRWAD 13:15
DX: D35.2 Benign neoplasm of pituitary gland (principal)
CPT/HCPCS: 83001

== ENCOUNTER → 2017-10-31 | Outpatient (REF) | payer BC ==
[2017-10-31 20:41] LABS: APPEARANCE, URINE CLEAR (CLEAR); BACTERIA, URINE AUTO NEGATIVE (NEGATIVE); BILIRUBIN, URINE AUTO NEGATIVE (NEGATIVE); BLOOD, URINE BLOOD 1+ (NEGATIVE); COLOR, URINE YELLOW (YELLOW); GLUCOSE, URINE (UA) AUTO NEGATIVE (NEGATIVE); KETONE, URINE AUTO NEGATIVE (NEGATIVE); LEUKOCYTE ESTERASE, URINE AUTO NEGATIVE (NEGATIVE); MUCUS, URINE SMALL (NEGATIVE); NITRITE, URINE AUTO NEGATIVE (NEGATIVE); PROTEIN, URINE AUTO NEGATIVE (NEGATIVE); RBC, URINE AUTO 0 /HPF (0-3); SPECIFIC GRAVITY URINE AUTO 1.008 (1.002-1.035); SQUAMOUS EPITHELIAL CELL UR AU 0 /HPF (0-6); UROBILINOGEN, URINE AUTO 0.2 mg/dL (0.0-2.0); WBC, URINE AUTO 1 /HPF (0-3)
== END ==
LOC: M SFHCADAM 10:10
DX: R80.9 Proteinuria, unspecified (principal)

== ENCOUNTER → 2017-11-09 | Outpatient (CLI) | payer BC ==
[2017-11-09 09:44] LABS: BASO # 0.1 10^3/uL (0.0-0.2); BASO % 0.7 % (0.0-1.0); EOS # 0.3 10^3/uL (0.0-0.50); EOS % 4.3 % (0.0-3.0); HEMATOCRIT 39.9 % (42.0-52.0); HEMOGLOBIN 13.8 g/dl (13.5-17.5); IMMATURE GRANULOCYTE % 0.4 % (0-3.0); LYMPH # 3.1 10^3/uL (1.5-4.5); MEAN CORPUSCULAR HEMOGLOBIN 29.4 pg (27.0-33.0); MEAN CORPUSCULAR HGB CONC 34.6 g/dl (32.0-36.5); MEAN CORPUSCULAR VOLUME 84.9 fl (80.0-96.0); MONO # 0.4 10^3/uL (0.0-0.8); MONO % 5.2 % (0.0-5.0); NEUTROPHILS # 3.1 10^3/uL (1.8-7.7); NEUTROPHILS % 44.4 % (36.0-66.0); PLATELET COUNT, AUTOMATED 215 10^3/uL (150-450); RED CELL DISTRIBUTION WIDTH 12.7 % (11.5-14.5)
[2017-11-09 09:47] LABS: APPEARANCE, URINE CLEAR (CLEAR); BACTERIA, URINE AUTO NEGATIVE (NEGATIVE); BILIRUBIN, URINE AUTO NEGATIVE (NEGATIVE); BLOOD, URINE BLOOD 1+ (NEGATIVE); COLOR, URINE YELLOW (YELLOW); GLUCOSE, URINE (UA) AUTO NEGATIVE (NEGATIVE); KETONE, URINE AUTO NEGATIVE (NEGATIVE); LEUKOCYTE ESTERASE, URINE AUTO NEGATIVE (NEGATIVE); MUCUS, URINE SMALL (NEGATIVE); NITRITE, URINE AUTO NEGATIVE (NEGATIVE); PROTEIN, URINE AUTO 1+ mg/dL (NEGATIVE); RBC, URINE AUTO 1 /HPF (0-3); SPECIFIC GRAVITY URINE AUTO 1.023 (1.002-1.035); SQUAMOUS EPITHELIAL CELL UR AU 0 /HPF (0-6); UROBILINOGEN, URINE AUTO 0.2 mg/dL (0.0-2.0); WBC, URINE AUTO 0 /HPF (0-3)
[2017-11-09 10:36] LABS: ALBUMIN 3.6 GM/DL (3.2-5.2); ALBUMIN/GLOBULIN RATIO 1.09 (1.00-1.93); ALKALINE PHOSPHATASE 73 U/L (45-117); ALT/SGPT 55 U/L (12-78); ANION GAP 8 MEQ/L (8-16); AST/SGOT 23 U/L (7-37); BILIRUBIN,TOTAL 0.3 MG/DL (0.2-1.0); BLOOD UREA NITROGEN 17 MG/DL (7-18); CALCIUM LEVEL 8.4 MG/DL (8.5-10.1); CARBON DIOXIDE LEVEL 26 MEQ/L (21-32); CHLORIDE LEVEL 109 MEQ/L (98-107); CPK CREATINE PHOSPHOKINASE 249 U/L (39-308); CREATININE FOR GFR 1.07 MG/DL (0.70-1.30); FREE T4 1.19 NG/DL (0.76-1.46); GLOMERULAR FILTRATION RATE > 60.0 (>60); GLUCOSE, FASTING 123 MG/DL (70-100); POTASSIUM SERUM 4.1 MEQ/L (3.5-5.1); SODIUM LEVEL 143 MEQ/L (136-145); TOTAL PROTEIN 6.9 GM/DL (6.4-8.2)
[2017-11-10 06:58] LABS: CORTISOL AM 17.9 UG/DL (4.3-22.4)
[2017-11-12 00:14] LABS: TESTOSTERONE FREE (DIRECT) 1.9 pg/mL (8.7-25.1)
== END ==
LOC: M LAB 09:09
DX: R80.9 Proteinuria, unspecified (principal); E23.0 Hypopituitarism
CPT/HCPCS: 82550

== ENCOUNTER → 2018-01-02 | Outpatient (REF) | payer BC ==
[2018-01-02 14:09] LABS: TOTAL PROTEIN,RANDOM URINE 34.6 MG/DL (0.0-12.0)
== END ==
LOC: M LAB REF 13:07
DX: R80.9 Proteinuria, unspecified (principal)
CPT/HCPCS: 84156

== ENCOUNTER → 2018-01-07 | Outpatient (CLI) | payer BC | LOC: M RAD 10:01 | DX: R16.0 Hepatomegaly, not elsewhere classified (principal); K76.0 Fatty (change of) liver, not elsewhere classified; R80.9 Proteinuria, unspecified; N18.2 Chronic kidney disease, stage 2 (mild) | CPT/HCPCS: 76775 ==

== ENCOUNTER → 2018-01-15 | Outpatient (CLI) | payer BC ==
[~2018-01-15] MED LIST changes: -ASPI325T PO; +ISOVUE-370 76% 100ML VIAL (Q9967) As Ordered; -PROHANCE 279.3MG/ML 15ML VIAL (A9576) As Ordered ONE
== END ==
LOC: M RAD 15:02
DX: G44.83 Primary cough headache (principal)
CPT/HCPCS: Q9967

== ENCOUNTER → 2018-01-21 | Outpatient (REF) | payer BC ==
[2018-01-23 13:48] LABS: CREATININE, URINE 83.8 MG/DL; URINE TOTAL PROTEIN 8.1 MG/DL (0-12)
[2018-01-23 15:14] LABS: CREATININE 24 HOUR, URINE 3100.6 MG/24HR (950-2500); TOTAL PROTEIN 24 HOUR URINE 299.7 MG/24HR (50-150); TOTAL VOLUME, URINE 3700 ML
== END ==
LOC: M LAB REF 12:45
DX: R80.9 Proteinuria, unspecified (principal); N18.2 Chronic kidney disease, stage 2 (mild)
CPT/HCPCS: 81050

== ENCOUNTER → 2018-03-24 | Outpatient (REF) | payer BC ==
[2018-03-24 19:11] LABS: BACTERIA, URINE AUTO NEGATIVE (NEGATIVE); MUCUS, URINE SMALL (NEGATIVE); RBC, URINE AUTO 0 /HPF (0-3); SQUAMOUS EPITHELIAL CELL UR AU 0 /HPF (0-6); WBC, URINE AUTO 1 /HPF (0-3)
[2018-03-24 19:37] LABS: AMMONIA 141 uMOL/L (<32)
[2018-03-25 02:49] LABS: COMPLEMENT C3 164 MG/DL (90-180)
[2018-03-25 02:49] LABS: COMPLEMENT C4 24 MG/DL (10-40)
[2018-03-28 00:07] LABS: ANCA-ATYPICAL <1:20 titer (Neg:<1:20); ANTI DOUBLE STRAND-DNA AB <1 IU/mL (0-9); ANTI-GLOMERULAR BASEMENT MEMB 2 units (0-20); ANTINUCLEAR ANTIBODIES DIRECT Negative (Negative); CYTOPLASMIC NEUTROP AB ANCA-C <1:20 titer (Neg:<1:20); PERINUCLEAR AB ANCA-P <1:20 titer (Neg:<1:20)
== END ==
LOC: M LAB REF 16:49
DX: K76.0 Fatty (change of) liver, not elsewhere classified (principal)
CPT/HCPCS: 82140

== ENCOUNTER → 2018-03-26 | Outpatient (CLI) | payer BC ==
[2018-03-26 11:06] LABS: HEMATOCRIT 39.7 % (42.0-52.0); HEMOGLOBIN 13.6 g/dl (13.5-17.5); MEAN CORPUSCULAR HEMOGLOBIN 29.7 pg (27.0-33.0); MEAN CORPUSCULAR HGB CONC 34.3 g/dl (32.0-36.5); MEAN CORPUSCULAR VOLUME 86.7 fl (80.0-96.0); PLATELET COUNT, AUTOMATED 212 10^3/uL (150-450); RED BLOOD COUNT 4.58 10^6/uL (4.30-6.10); RED CELL DISTRIBUTION WIDTH 13.2 % (11.5-14.5); WHITE BLOOD COUNT 7.6 10^3/uL (4.0-10.0)
[2018-03-26 11:44] LABS: ALBUMIN 3.6 GM/DL (3.2-5.2); ALBUMIN/GLOBULIN RATIO 1.16 (1.00-1.93); ALKALINE PHOSPHATASE 73 U/L (45-117); ALT/SGPT 52 U/L (12-78); ANION GAP 6 MEQ/L (8-16); AST/SGOT 23 U/L (7-37); BILIRUBIN,TOTAL 0.2 MG/DL (0.2-1.0); BLOOD UREA NITROGEN 13 MG/DL (7-18); CALCIUM LEVEL 8.2 MG/DL (8.5-10.1); CARBON DIOXIDE LEVEL 26 MEQ/L (21-32); CHLORIDE LEVEL 109 MEQ/L (98-107); CHOLESTEROL LEVEL 224 MG/DL (<200); CHOLESTEROL RISK RATIO 9.333 (<5); CREATININE FOR GFR 1.13 MG/DL (0.70-1.30); GLOMERULAR FILTRATION RATE > 60.0 (>60); GLUCOSE, FASTING 107 MG/DL (70-100); HDL CHOLESTEROL 24 MG/DL (>40); NON-HDL-C 200 MG/DL; POTASSIUM SERUM 4.3 MEQ/L (3.5-5.1); SODIUM LEVEL 141 MEQ/L (136-145); THYROID STIMULATING HORMONE 0.154 uIU/ML (0.358-3.740); THYROXINE (T4) 6.4 UG/DL (4.5-12.0); TOTAL PROTEIN 6.7 GM/DL (6.4-8.2); TRIGLYCERIDES LEVEL 458 MG/DL (<150)
[2018-03-26 12:59] LABS: TOTAL 25(OH) VITAMIN D 21.8 NG/ML (30.0-100.0)
[2018-03-26 13:00] LABS: CORTISOL AM 0.7 UG/DL (4.3-22.4); ESTRADIOL 20.6 PG/ML (<39.8); LUTEINIZING HORMONE 0.4 mIU/mL (1.5-9.3); TOTAL T3 88.4 NG/DL (60.0-181.0)
[2018-03-26 13:01] LABS: FOLLICLE STIMULATING HORMONE 1.6 mIU/mL (1.4-18.1)
[2018-03-26 13:30] LABS: TESTOSTERONE 225 NG/DL (241-827)
== END ==
LOC: M LAB 10:28
DX: R53.83 Other fatigue (principal); I10 Essential (primary) hypertension; E03.9 Hypothyroidism, unspecified
CPT/HCPCS: 83001

== ENCOUNTER → 2018-04-02 | Outpatient (REF) | payer BC ==
[~2018-04-02] MED LIST changes: +ASPI325T PO; +CONS10SO3; +DIAZ5TAB; +HYDR-3291; +INDO25CA; -ISOVUE-370 76% 100ML VIAL (Q9967) As Ordered; +LEVO150T7; +LORA1TAB12; +TEST1GEL6
== END ==
LOC: M LAB REF 17:22
PROVIDERS: ATTEND Internal Medicine Nephrology
DX: K76.0 Fatty (change of) liver, not elsewhere classified (principal)

== ENCOUNTER 2018-04-12 14:44 | Emergency (ER) | payer BC ==
[~2018-04-12] VITALS: Ht 170.2 cm; Wt 136.4 kg
[~2018-04-12 14:44] MED LIST changes: -CONS10SO3; -DIAZ5TAB; -HYDR-3291; -INDO25CA; -LEVO150T7; -LORA1TAB12; -TEST1GEL6
[2018-04-12] MEDS ORDERED: LEVO150T7 (14:57)
[2018-04-12] MEDS ORDERED: HYDR-3291 (14:57)
[2018-04-12] MEDS ORDERED: TEST1GEL6 (14:57)
[2018-04-12] MEDS ORDERED: CONS10SO3 (14:57)
[2018-04-12] MEDS ORDERED: LORA1TAB12 (14:57)
[2018-04-12] MEDS ORDERED: DIAZ5TAB (14:57)
[2018-04-12] MEDS ORDERED: INDO25CA (14:57)
[2018-04-12 16:03] LABS: BASO % 0.4 % (0.0-1.0); EOS # 0.4 10^3/uL (0.0-0.50); EOS % 3.5 % (0.0-3.0); HEMATOCRIT 38.8 % (42.0-52.0); HEMOGLOBIN 13.4 g/dl (13.5-17.5); LYMPH # 2.4 10^3/uL (1.5-4.5); LYMPH % 23.8 % (24.0-44.0); MEAN CORPUSCULAR HEMOGLOBIN 29.3 pg (27.0-33.0); MEAN CORPUSCULAR HGB CONC 34.5 g/dl (32.0-36.5); MEAN CORPUSCULAR VOLUME 84.9 fl (80.0-96.0); MONO # 0.5 10^3/uL (0.0-0.8); MONO % 5.4 % (0.0-5.0); NEUTROPHILS # 6.7 10^3/uL (1.8-7.7); NEUTROPHILS % 66.3 % (36.0-66.0); PLATELET COUNT, AUTOMATED 241 10^3/uL (150-450); RED BLOOD COUNT 4.57 10^6/uL (4.30-6.10)
[2018-04-12 16:34] LABS: ALBUMIN 3.8 GM/DL (3.2-5.2); ALT/SGPT 54 U/L (12-78); BILIRUBIN,TOTAL 0.2 MG/DL (0.2-1.0); BLOOD UREA NITROGEN 17 MG/DL (7-18); CARBON DIOXIDE LEVEL 24 MEQ/L (21-32); CHLORIDE LEVEL 107 MEQ/L (98-107); CREATININE FOR GFR 1.11 MG/DL (0.70-1.30); GLOMERULAR FILTRATION RATE > 60.0 (>60); GLUCOSE, FASTING 101 MG/DL (70-100); POTASSIUM SERUM 4.7 MEQ/L (3.5-5.1); SODIUM LEVEL 139 MEQ/L (136-145); TOTAL PROTEIN 7.3 GM/DL (6.4-8.2)
[2018-04-12 17:03] LABS: SALICYLATE LEVEL < 1.7 MG/DL (5.0-30.0)
[2018-04-12 17:04] LABS: ACETAMINOPHEN LEVEL < 2.0 UG/ML (10.0-30.0); ETHYL ALCOHOL (ETHANOL) < 0.003 % (0.000-0.010)
[2018-04-12 17:22] LABS: AMPHETAMINES LEVEL URINE NEGATIVE (NEGATIVE); BARBITURATES URINE NEGATIVE (NEGATIVE); BENZODIAZEPINES URINE NEGATIVE (NEGATIVE); CANNABINOIDS URINE POSITIVE (NEGATIVE); COCAINE METABOLITE URINE NEGATIVE (NEGATIVE); METHADONE URINE NEGATIVE (NEGATIVE); OPIATES URINE NEGATIVE (NEGATIVE); PHENCYCLIDINE URINE NEGATIVE (NEGATIVE)
[2018-04-12 18:28] VITALS: BP 139/82
== END 2018-04-12 18:33 | disposition home or self-care (01) ==
LOC: M ED 14:44
DX: E72.20 Disorder of urea cycle metabolism, unspecified (principal); R41.89 Other symptoms and signs involving cognitive functions and awareness; E23.0 Hypopituitarism; F12.10 Cannabis abuse, uncomplicated; D68.51 Activated protein C resistance; E66.9 Obesity, unspecified; Z79.899 Other long term (current) drug therapy; Z79.82 Long term (current) use of aspirin
CPT/HCPCS: 80053; 80307; 82140; 83605; 85025; 87040; 99284; G0480

== ENCOUNTER → 2018-05-22 | Outpatient (CLI) | payer BC ==
[~2018-05-22] MED LIST changes: +CONS10SO3; +DIAZ5TAB; +GASTROGRAFIN SOLUTION 30ML (Q9963) As Ordered ONE; +HYDR-3291; +INDO25CA; +ISOVUE-370 76% 100ML VIAL (Q9967) As Ordered ONE; +LEVO150T7; +LORA1TAB12; +TEST1GEL6
--- NOTE | 2018-05-22 10:10 | REP ---
CT abdomen limited study. History: Altered mental status abnormal liver function studies. Patient being evaluated for hyper of anemia. Findings: A multi phase CT abdomen and pelvis was ordered and planned. However, the patient's IV infiltrated approximately skilled nursing through the injection. Limited scanning was performed. Exam is being rescheduled because of the IV infiltration. The limited images acquired show fatty infiltration of the liver, gallstones, granulomatous calcifications in the liver, accessory splenules, a ptotic or pelvic right kidney incompletely seen. Arrangements are being made to reschedule this examination so that three-phase postcontrast imaging can be acquired. Impression: Study incomplete due to IV contrast infiltration. Exam is being rescheduled. Interval findings as above. Electronically Signed by Ino Diaz MD 05/22/2018 10:02 A
== END ==
LOC: M RAD 08:28
PROVIDERS: ATTEND Internal Medicine Gastroenterology
DX: R41.82 Altered mental status, unspecified (principal); R94.5 Abnormal results of liver function studies; K76.0 Fatty (change of) liver, not elsewhere classified
CPT/HCPCS: Q9963; Q9967

== ENCOUNTER → 2018-05-27 | Outpatient (CLI) | payer BC ==
--- NOTE | 2018-05-27 18:05 | REP ---
CT of the abdomen and pelvis without and with IV contrast: After IV contrast, multiphase imaging is performed with scanning during the arterial, portal venous and delayed equilibrium phase. The hepatic parenchyma is homogeneous on all phases of the study. The hepatic density is normal. There are no hepatic masses. There are calcifications in the right lobe of the liver, not associated with an hepatic mass, likely granulomas. No biliary duct dilatation. There is a calculus in the neck of the gallbladder. The gallbladder is not distended. The pancreas and spleen are unremarkable. A few splenules adjacent to the spleen are incidentally identified. The adrenals are unremarkable. The right kidney is ptotic but otherwise unremarkable. The left kidney is unremarkable. The abdominal aorta is unremarkable. There is no mesenteric or retroperitoneal adenopathy. There is no bowel distension or obstruction. Pelvis: There is no ascites or adenopathy. The bladder is unremarkable. The pelvic bowel loops are unremarkable. The terminal ileum is unremarkable. The appendix is unremarkable. Impression: The hepatic density is normal and similar to the spleen. There are hepatic calcifications not associated with an hepatic mass, likely granulomas. Ptotic right kidney. Splenules. The gallbladder calculus near the gallbladder neck. Electronically Signed by Joshua Chaudhary MD 05/27/2018 05:57 P
== END ==
LOC: M RAD 16:00
PROVIDERS: ATTEND Internal Medicine Gastroenterology
DX: R41.82 Altered mental status, unspecified (principal); R94.5 Abnormal results of liver function studies; K80.20 Calculus of gallbladder without cholecystitis without obstruction; D73.89 Other diseases of spleen; N28.83 Nephroptosis
CPT/HCPCS: 74177; Q9963; Q9967

== ENCOUNTER → 2018-06-30 | Outpatient (REF) | payer BC ==
[~2018-06-30] MED LIST changes: +CITA20TA4 PO; -CONS10SO3; +CONS10SO3 PO; -GASTROGRAFIN SOLUTION 30ML (Q9963) As Ordered ONE; +HYDR-3291 PO; +HYDR20TA3 PO; -ISOVUE-370 76% 100ML VIAL (Q9967) As Ordered ONE; +LEVO150T7 PO; -TEST1GEL6; +TEST1GEL6 TOP
[2018-06-30 16:22] LABS: BLOOD UREA NITROGEN 13 MG/DL (7-18); CALCIUM LEVEL 8.4 MG/DL (8.5-10.1); CARBON DIOXIDE LEVEL 29 MEQ/L (21-32); CHLORIDE LEVEL 108 MEQ/L (98-107); CREATININE FOR GFR 1.16 MG/DL (0.70-1.30); FREE T4 1.05 NG/DL (0.76-1.46); GLOMERULAR FILTRATION RATE > 60.0 (>60); GLUCOSE, FASTING 122 MG/DL (70-100); POTASSIUM SERUM 4.4 MEQ/L (3.5-5.1); SODIUM LEVEL 141 MEQ/L (136-145)
[2018-06-30 16:37] LABS: TESTOSTERONE 174 NG/DL (241-827)
== END ==
LOC: M LAB REF 15:39 → M LABDRAW1 15:39
PROVIDERS: ATTEND Internal Medicine Endocrinology, Diabetes & Metabolism
DX: E23.0 Hypopituitarism (principal)

== ENCOUNTER 2018-07-13 11:33 | Day surgery (SDC) | payer BC ==
[~2018-07-13] VITALS: Ht 170.2 cm; Wt 138.7 kg
[~2018-07-13 11:33] MED LIST changes: +ASPI-1 PO; -ASPI325T PO; -CITA20TA4 PO; +CITA20TA6 PO; -HYDR-3291; -HYDR-3291 PO; +HYDR-4513; +HYDR-4513 PO; +HYDR20TA17 PO; -HYDR20TA3 PO; +LIDOCAINE 2% INJ 100 MG/5 ML SDV (FOR ANES.) As Ordered ONE; +NS 1,000 ML IV ONE; +PROPOFOL 200 MG/20 ML VIAL As Ordered ONE
--- NOTE | 2018-07-13 13:01 | ROOR ---
Patient Name: Los Carrera Procedure Date: 07/13/2018 12:28 PM Date of : 1980 Age: 37 Room: [facility] Gender: Male Note Status: Finalized Procedure: Upper GI endoscopy Indications: Cirrhosis with suspected esophageal varices, Cirrhosis rule out esophageal varices Providers: Andrea Ridley MD Referring MD: MAGDY MANJARREZ MD Requesting Provider: Medicines: Monitored Anesthesia Care Complications: No immediate complications. Procedure: Pre-Anesthesia Assessment: - Prior to the procedure, a History and Physical was performed, and patient medications and allergies were reviewed. The patient is competent. The risks and benefits of the procedure and the sedation options and risks were discussed with the patient. All questions were answered and informed consent was obtained. Patient identification and proposed procedure were verified by the physician, the nurse and the anesthesiologist in the procedure room. Mental Status Examination: alert and oriented. Airway Examination: normal oropharyngeal airway and neck mobility. Respiratory Examination: clear to auscultation. CV Examination: normal. Prophylactic Antibiotics: The patient does not require prophylactic antibiotics. Prior Anticoagulants: The patient has taken no previous anticoagulant or antiplatelet agents. ASA Grade Assessment: II - A patient with mild systemic disease. After reviewing the risks and benefits, the patient was deemed in satisfactory condition to undergo the procedure. The anesthesia plan was to use monitored anesthesia care (MAC). Immediately prior to administration of medications, the patient was re-assessed for adequacy to receive sedatives. The heart rate, respiratory rate, oxygen saturations, blood pressure, adequacy of pulmonary ventilation, and response to care were monitored throughout the procedure. The physical status of the patient was re-assessed after the procedure. The Endoscope was introduced through the mouth, and advanced to the second part of duodenum. The upper GI endoscopy was accomplished without difficulty. The patient tolerated the procedure well. Findings: LA Grade B (one or more mucosal breaks greater than 5 mm, not extending between the tops of two mucosal folds) esophagitis with no bleeding was found 40 to 42 cm from the incisors. Biopsies were taken with a cold forceps for histology. Verification of patient identification for the specimen was done by the physician and nurse using the patient's name, date and medical record number. Estimated blood loss was minimal. There is no endoscopic evidence of varices in the entire esophagus. Patchy minimal inflammation characterized by erosions, erythema and granularity was found in the gastric antrum. Biopsies were taken with a cold forceps for Helicobacter pylori testing. The duodenal bulb and second portion of the duodenum were normal. Impression: - LA Grade B reflux esophagitis. Rule out Alston's esophagus. Biopsied. - Gastritis. Biopsied. - Normal duodenal bulb and second portion of the duodenum. Recommendation: - Patient has a contact number available for emergencies. The signs and symptoms of potential delayed complications were discussed with the patient. Return to normal activities tomorrow. Written discharge instructions were provided to the patient. - Resume previous diet. - Continue present medications. - Await pathology results. - Follow an antireflux regimen. - Based on the biopsy results you will receive a phone call from GI clinic in 2-3 weeks to review the pathology results AND/OR your results will be faxed to your Primary care physician. - Return to primary care physician. Andrea Ridley MD Andrea Ridley MD 07/13/2018 1:01:19 PM Electronically signed by Andrea Ridley MD Number of Addenda: 0 Note Initiated On: 07/13/2018 12:28 PM Estimated Blood Loss: Estimated blood loss was minimal.
[2018-07-13 13:18] VITALS: BP 149/85
== END 2018-07-13 13:31 | disposition home or self-care (01) ==
LOC: M OPP 11:33
PROVIDERS: ATTEND Internal Medicine Gastroenterology
DX: K21.0 Gastro-esophageal reflux disease with esophagitis (principal); K29.70 Gastritis, unspecified, without bleeding; K74.60 Unspecified cirrhosis of liver

== ENCOUNTER → 2018-07-23 | Outpatient (REF) | payer BC ==
[~2018-07-23] MED LIST changes: -LIDOCAINE 2% INJ 100 MG/5 ML SDV (FOR ANES.) As Ordered ONE; -NS 1,000 ML IV ONE; -PROPOFOL 200 MG/20 ML VIAL As Ordered ONE
== END ==
LOC: M LAB REF 17:15
PROVIDERS: ATTEND Internal Medicine Nephrology
DX: K76.0 Fatty (change of) liver, not elsewhere classified (principal)

== ENCOUNTER → 2019-01-18 | Outpatient (CLI) | payer BC ==
[~2019-01-18] MED LIST changes: +INDO-16; -INDO25CA
[2019-01-18 19:02] LABS: FREE T4 0.98 NG/DL (0.76-1.46); THYROID STIMULATING HORMONE 0.018 uIU/ML (0.358-3.740)
== END ==
LOC: M LAB 17:11
PROVIDERS: ATTEND Internal Medicine Endocrinology, Diabetes & Metabolism
DX: E23.0 Hypopituitarism (principal)

== ENCOUNTER → 2019-01-18 | Outpatient (CLI) | payer BC | LOC: M LAB 17:07 | DX: R74.8 Abnormal levels of other serum enzymes (principal) ==

== ENCOUNTER → 2019-05-25 | Outpatient (CLI) | payer BC ==
[~2019-05-25] MED LIST changes: -LORA1TAB12; +LORA1TAB4
== END ==
LOC: M LAB 16:40
PROVIDERS: ATTEND Internal Medicine Endocrinology, Diabetes & Metabolism
DX: E23.0 Hypopituitarism (principal)

== ENCOUNTER → 2020-02-29 | Outpatient (CLI) | payer BC ==
[~2020-02-29] MED LIST changes: +HYDR-4468; +HYDR-4468 PO; -HYDR-4513; -HYDR-4513 PO; -HYDR20TA17 PO; +HYDR20TA2 PO
[2020-02-29 14:23] LABS: HEMATOCRIT 40.2 % (42.0-52.0); HEMOGLOBIN 13.8 g/dl (13.5-17.5); MEAN CORPUSCULAR HEMOGLOBIN 28.8 pg (27.0-33.0); MEAN CORPUSCULAR HGB CONC 34.3 g/dl (32.0-36.5); MEAN CORPUSCULAR VOLUME 83.8 fl (80.0-96.0); PLATELET COUNT, AUTOMATED 233 10^3/uL (150-450)
[2020-02-29 14:56] LABS: HEMOGLOBIN A1c 5.5 %
[2020-02-29 15:06] LABS: ALBUMIN 3.9 GM/DL (3.2-5.2); ALT/SGPT 44 U/L (12-78); BILIRUBIN,TOTAL 0.5 MG/DL (0.2-1.0); BLOOD UREA NITROGEN 17 MG/DL (7-18); CALCIUM LEVEL 9.4 MG/DL (8.5-10.1); CARBON DIOXIDE LEVEL 27 MEQ/L (21-32); CHLORIDE LEVEL 107 MEQ/L (98-107); CHOLESTEROL LEVEL 198 MG/DL (<200); CREATININE FOR GFR 1.21 MG/DL (0.70-1.30); GLOMERULAR FILTRATION RATE > 60.0 (>60); GLUCOSE, FASTING 86 MG/DL (70-100); HDL CHOLESTEROL 30 MG/DL (>40); LDL CHOLESTEROL 100 MG/DL (<100); NON-HDL-C 168 MG/DL; POTASSIUM SERUM 4.5 MEQ/L (3.5-5.1); SODIUM LEVEL 139 MEQ/L (136-145); TESTOSTERONE < 7 NG/DL (241-827); THYROID STIMULATING HORMONE 0.034 uIU/ML (0.358-3.740); TOTAL 25(OH) VITAMIN D 25.6 NG/ML (30.0-100.0); TOTAL PROTEIN 7.4 GM/DL (6.4-8.2); TRIGLYCERIDES LEVEL 339 MG/DL (<150)
== END ==
LOC: M LAB 13:52
PROVIDERS: ATTEND Family Medicine
DX: E03.9 Hypothyroidism, unspecified (principal); E11.9 Type 2 diabetes mellitus without complications; I10 Essential (primary) hypertension

== ENCOUNTER → 2020-11-06 | Outpatient (CLI) | payer BC ==
[2020-11-06 12:40] LABS: HEMATOCRIT 39.7 % (42.0-52.0); HEMOGLOBIN 13.4 g/dl (13.5-17.5)
== END ==
LOC: M LAB 11:29
PROVIDERS: ATTEND Internal Medicine
DX: E29.1 Testicular hypofunction (principal)

== ENCOUNTER → 2021-03-02 | Outpatient (REF) | payer BC ==
[2021-03-02 16:41] LABS: BLOOD UREA NITROGEN 13 MG/DL (7-18); CALCIUM LEVEL 8.9 MG/DL (8.5-10.1); CARBON DIOXIDE LEVEL 26 MEQ/L (21-32); CHLORIDE LEVEL 110 MEQ/L (98-107); FREE T3 2.2 PG/ML (2.2-4.0); GLOMERULAR FILTRATION RATE > 60.0 (>60); GLUCOSE, FASTING 86 MG/DL (70-100); POTASSIUM SERUM 4.7 MEQ/L (3.5-5.1); SODIUM LEVEL 141 MEQ/L (136-145)
== END ==
LOC: M LABDRWAD 15:54
PROVIDERS: ATTEND Internal Medicine Endocrinology, Diabetes & Metabolism
DX: E29.1 Testicular hypofunction (principal); E23.0 Hypopituitarism; E03.9 Hypothyroidism, unspecified

== ENCOUNTER → 2023-06-25 | Outpatient (CLI) | payer OTHER ==
[~2023-06-25] MED LIST changes: +LORA1TAB23; -LORA1TAB4
[2023-06-25 13:49] LABS: HEMATOCRIT 39.4 % (42.0-52.0); HEMOGLOBIN 13.8 g/dl (13.5-17.5); MEAN CORPUSCULAR HEMOGLOBIN 29.8 pg (27.0-33.0); MEAN CORPUSCULAR VOLUME 85.1 fl (80.0-96.0); PLATELET COUNT, AUTOMATED 232 10^3/uL (150-450); RED BLOOD COUNT 4.63 10^6/uL (4.30-6.10); WHITE BLOOD COUNT 7.5 10^3/uL (4.0-10.0)
[2023-06-25 14:23] LABS: PROSTATIC SPECIFIC AG MONITOR 0.14 NG/ML (< 4.00)
== END ==
LOC: M LAB 13:17
PROVIDERS: ATTEND Internal Medicine Endocrinology, Diabetes & Metabolism
DX: E29.1 Testicular hypofunction (principal)

== ENCOUNTER → 2024-01-12 | Outpatient (CLI) | payer OTHER | LOC: M LAB 11:09 | PROVIDERS: ATTEND Internal Medicine Endocrinology, Diabetes & Metabolism | DX: E29.1 Testicular hypofunction (principal) ==

== ENCOUNTER → 2024-07-09 | Outpatient (REF) | payer OTHER ==
[2024-07-09 14:08] LABS: HEMATOCRIT 41.4 % (42.0-52.0); HEMOGLOBIN 14.2 g/dl (13.5-17.5)
[2024-07-09 14:45] LABS: ALBUMIN 3.6 G/DL (3.2-5.2); ALKALINE PHOSPHATASE 52 U/L (40-129); ALT/SGPT 40 U/L (7.0-40); AST/SGOT 20 U/L (<34); BILIRUBIN,TOTAL 0.4 MG/DL (0.3-1.2); BLOOD UREA NITROGEN 16 MG/DL (9-23); CALCIUM LEVEL 8.6 MG/DL (8.5-10.1); CARBON DIOXIDE LEVEL 24 MMOL/L (20-31); CHLORIDE LEVEL 104 MMOL/L (98-107); CREATININE FOR GFR 1.03 MG/DL (0.70-1.30); GLOMERULAR FILTRATION RATE > 60.0 (>60); GLUCOSE, FASTING 106 MG/DL (60-100); POTASSIUM SERUM 4.1 MMOL/L (3.5-5.1); SODIUM LEVEL 138 MMOL/L (136-145); TESTOSTERONE 774 NG/DL (241-827); TOTAL PROTEIN 6.6 G/DL (5.7-8.2)
[2024-07-12 14:13] LABS: PSA FREE 0.1 ng/mL; PSA TOTAL 0.4 ng/mL (< OR = 4.0)
[2024-07-13 09:38] LABS: FREE T4 1.31 NG/DL (0.89-1.76)
== END ==
LOC: M LABDRWAD 13:26
PROVIDERS: ATTEND Nurse Practitioner Family
DX: E29.1 Testicular hypofunction (principal)

== ENCOUNTER → 2025-01-20 | Outpatient (CLI) | payer OTHER ==
[2025-01-20 11:44] LABS: PLATELET COUNT, AUTOMATED 192 10^3/uL (150-450)
[2025-01-20 12:10] LABS: PSA SCREENING 0.30 NG/ML (< 4.00)
[2025-01-20 12:12] LABS: CALCIUM LEVEL 8.6 MG/DL (8.5-10.1); CARBON DIOXIDE LEVEL 25 MMOL/L (20-31); CHLORIDE LEVEL 107 MMOL/L (98-107); CREATININE FOR GFR 1.04 MG/DL (0.70-1.30); GLOMERULAR FILTRATION RATE > 90.0 (>60); POTASSIUM SERUM 4.4 MMOL/L (3.5-5.1); SODIUM LEVEL 141 MMOL/L (136-145)
[2025-01-20 12:15] LABS: FREE T4 1.22 NG/DL (0.89-1.76); TESTOSTERONE 702 NG/DL (241-827)
== END ==
LOC: M LAB 11:01
PROVIDERS: ATTEND Nurse Practitioner Family
DX: E23.0 Hypopituitarism (principal)
CPT/HCPCS: 36415; 80048; 84403; 84439; 85027; G0103